=== PATIENT | male | born 1950 | race Caucasian/White ===

== ENCOUNTER 2016-08-21 10:59 | Emergency (ER) | payer MEDICARE ==
[~2016-08-21] VITALS: Ht 170.2 cm; Wt 88.0 kg
[~2016-08-21 10:59] MED LIST: METH750T2 PO; PANT20 PO
[2016-08-21 11:15] VITALS: BP 126/86; PULSE 102; RESP 20; TEMP 99.6; O2SAT 97
--- NOTE | 2016-08-21 11:26 | PD ---
HPI Chief Complaint: Cold / Flu Symptoms Time Seen by Provider: 11:25 Travel History International Travel<30 days: No Contact w/Intl Traveler<30days: No Traveled to known affect area: No History of Present Illness HPI 66-year-old male presents to the ED for 1 week history of dull headache, clear rhinorrhea, sore throat, nonproductive cough, sneezing. Patient denies fever, chills, ear pain, chest pain, shortness of breath, abdominal pain, nausea, vomiting, dysuria. He's been treating with [place] day and nighttime cold and flu medication with some improvement of symptoms. He denies sick contacts. He denies receiving this years flu vaccine. He denies chronic health problems , takes no daily medications. NKDA. PFSH Past Medical History Tetanus Vaccination: Unknown Influenza Vaccination: No Past Surgical History Tonsillectomy: Yes Social History Alcohol Use: Yes (1-2 BEERS DAILY) Tobacco Use: No Substance Use: No Allergies-Medications (Allergen,Severity, Reaction): Coded Allergies: No Known Allergies (Unverified , 08/21/16) Reported Meds & Prescriptions Reported Meds & Active Scripts Active No Active Prescriptions or Reported Medications Review of Systems Except as stated in HPI: all other systems reviewed are Neg Physical Exam Narrative GENERAL: Well-nourished, well-developed white male, appearing younger than his stated age in no acute distress. SKIN: Warm and dry. HEAD: Normocephalic. EYES: No scleral icterus. No injection or drainage. ENT: Pearly peck tympanic membranes bilaterally. Nasal mucosa moist, mildly erythematous. Mild posterior oropharyngeal erythema. No edema, exudates. Uvula midline. Airway patent. NECK: Supple, trachea midline. No JVD. Tender bilateral anterior cervical lymphadenopathy. CARDIOVASCULAR: Regular rate and rhythm without murmurs, gallops, or rubs. RESPIRATORY: Breath sounds clear and equal bilaterally. No accessory muscle use. GASTROINTESTINAL: Abdomen soft, non-tender, nondistended. MUSCULOSKELETAL: No cyanosis, or edema. Patient is ambulatory, moves extremities spontaneously. BACK: Nontender without obvious deformity. No CVA tenderness. Data Data Last Documented VS Vital Signs Date Time Temp Pulse Resp B/P Pulse Ox O2 Delivery O2 Flow Rate FiO2 08/21/16 12:35 98.7 08/21/16 11:15 102 20 126/86 97 Orders Group A Rapid Strep Screen (08/21/16 11:37) Influenzae A/B Antigen (08/21/16 11:37) Acetaminophen (Tylenol) (08/21/16 11:45) Strep Culture (Group A) (08/21/16 11:45) MDM Medical Decision Making Medical Screen Exam Complete: Yes Emergency Medical Condition: Yes Differential Diagnosis Viral syndrome versus influenza versus pharyngitis versus group A strep versus environmental allergies versus other Narrative Course 66-year-old male presents to the ED for 1 week history of dull headache, clear rhinorrhea, sore throat, nonproductive cough, sneezing. Patient denies fever, chills, ear pain, chest pain, shortness of breath, abdominal pain, nausea, vomiting, dysuria. He's been treating with [place] day and nighttime cold and flu medication with some improvement of symptoms. He denies sick contacts. He denies receiving this years flu vaccine. Vitals reviewed. Physical exam reveals a nontoxic-appearing white male in no acute distress. There is mild posterior oropharyngeal erythema and tender bilateral submandibular lymphadenopathy. Chest clear to auscultation bilaterally. Remaining physical exam is unremarkable. Influenza and strep screening negative. This is viral syndrome. Patient was encouraged to continue symptomatic treatment, push fluids , follow-up with the primary care provider. He indicated understanding of the instructions and is amenable to the plan of care. He is stable and discharged home. Diagnosis Primary Impression: Viral syndrome Referrals: Primary Care Physician Patient Instructions: General Instructions, Viral Syndrome (ED) Additional Instructions: Rest, hydrate. Continue with symptomatic treatment utilizing OTC medications. Increase handwashing frequency to prevent spread of illness in the community. Replace toothbrush at the end of illness. Disinfect all commonly touched surfaces such as light switches, remote controls , microwave control panels. Follow-up with primary care provider this week. Return to the ED for any urgent or emergent medical condition. Scripts No Active Prescriptions or Reported Meds Disposition: 01 DISCHARGE HOME Condition: Stable Bhavana Lopez Aug 21, 2016 11:26
[2016-08-21] MEDS ORDERED: ACETAMINOPHEN 325 MG TAB PO ONE (11:45)
[2016-08-21 12:35] VITALS: TEMP 98.7
== END 2016-08-21 12:39 | disposition home or self-care (01) ==
LOC: PHEFT 10:59
DX: B34.9 Viral infection, unspecified (principal); R51 Headache; J34.89 Other specified disorders of nose and nasal sinuses; R07.0 Pain in throat; R05 Cough; R06.7 Sneezing
CPT/HCPCS: 87081; 87804; 87880; 99284